=== PATIENT | female | born 1950 | race Caucasian/White ===

== ENCOUNTER 2018-07-24 09:13 | Emergency (ER) | payer OTHER ==
[2018-07-24 09:34] VITALS: BMI 37.8
[2018-07-24] MEDS ORDERED: KETOROLAC TROMETHAMINE 30 MG/1 ML VIAL IVPUSH ONE (09:39)
--- NOTE | 2018-07-24 09:40 | PDOC ---
History of Present Illness - General Chief Complaint: Urinary Problem Stated Complaint: R/O KIDNEY STONE Time Seen by Provider: 07/24/18 09:33 - History of Present Illness Initial Comments: 07/24/18 10:11 CHIEF COMPLAINT: Flank pain HISTORY OF PRESENT ILLNESS: This is a 67-year-old female with a history of hypertension, hyperlipidemia, and NIDDM, and distant history of kidney stones not requiring any intervention who presents complaining of sudden onset of left flank pain and vomiting this morning. She states symptoms are reminiscent of prior episodes of kidney stones. She denies fevers/chills, dysuria, hematuria, or any other symptoms. Vital signs on arrival are all within normal limits. REVIEW OF SYSTEMS: GENERAL/CONSTITUTIONAL: No fever or chills. No weakness. No weight change. HEAD, EYES, EARS, NOSE AND THROAT: No change in vision. No ear pain or discharge. No sore throat. CARDIOVASCULAR: No chest pain or palpitations. RESPIRATORY: No cough, wheezing, or shortness of breath. GASTROINTESTINAL: Nausea/vomiting. No diarrhea or constipation. GENITOURINARY: Left flank pain. No dysuria, frequency, or change in urination. MUSCULOSKELETAL: No joint or muscle swelling or pain. No neck or back pain. SKIN: No rash or easy bruising. NEUROLOGIC: No headache, vertigo, loss of consciousness, or loss of sensation. PSYCHIATRIC: No depression or anxiety. ENDOCRINE: No increased thirst. No abnormal weight change. HEMATOLOGIC/LYMPHATIC: No anemia, easy bleeding, or history of blood clots. ALLERGIC/IMMUNOLOGIC: No hives or skin allergy. No latex allergy. PHYSICAL EXAM: GENERAL: The patient is awake, alert, and fully oriented, in distress secondary to pain. HEAD: Normal with no signs of trauma. ENT: Pupils equal, round and reactive to light, extraocular movements intact, sclera anicteric, conjunctiva clear. Neck supple. LUNGS: Clear to auscultation bilaterally. Normal excursion. No respiratory distress or use of accessory muscles. CV: RRR, S1/S2, no MRG. Cap refill < 2 sec. ABDOMEN: Soft, non-distended, tender in LLQ, left CVA. EXTREMITIES: Normal range of motion, no edema. NEUROLOGICAL: Normal speech, normal gait. CN II-XII grossly intact. PSYCH: Normal mood, normal affect. SKIN: Warm, dry, normal turgor, no rashes or lesions noted. 07/24/18 10:12 Past History - Past Medical History Allergies/Adverse Reactions: Allergies Allergy/AdvReac Type Severity Reaction Status Date / Time No Known Allergies Allergy Verified 07/24/18 09:32 Home Medications: Ambulatory Orders Cephalexin [Keflex] 500 mg PO Q6H #40 capsule 07/24/18 Oxycodone HCl/Acetaminophen [Percocet 5-325 mg Tablet] 1 - 2 tab PO Q6H PRN #30 tab MDD 8 tabs 07/24/18 Tamsulosin HCl [Flomax] 0.4 mg PO DAILY #7 cap.er.24h 07/24/18 CVA: No COPD: No Diabetes: Yes (NIDM) HTN: Yes Hypercholesterolemia: Yes - Immunization History Immunization Up to Date: Yes - Suicide/Smoking/Psychosocial Hx Smoking History: Never smoked Information on smoking cessation initiated: No Hx Alcohol Use: No Drug/Substance Use Hx: No *Physical Exam - Vital Signs Last Vital Signs Temp Pulse Resp BP Pulse Ox 97.3 F L 83 17 163/81 95 07/24/18 09:29 07/24/18 09:29 07/24/18 09:29 07/24/18 09:29 07/24/18 09:29 ED Treatment Course - LABORATORY CBC & Chemistry Diagram: 07/24/18 09:30 07/24/18 09:30 Medical Decision Making - Medical Decision Making 07/24/18 10:13 A/P: 67-year-old female with distant history of kidney stones presenting with sudden onset of left flank pain and vomiting. Differential includes but is not limited to renal colic, pyelonephritis, less likely diverticulitis or other intra-abdominal process. 1. Labs including CBC, CMP, UA/culture 2. Toradol 30 mg IV push for pain and Zofran 4 mg IV push for nausea 3. CT spiral renal stone protocol 4. Reassess Labs notable for WBC 21, UA with 3+ blood, 11 WBCs, 641 bacteria. Pain improved with Toradol, but still present. CT reviewed: 3 mm stone just proximal to left UVJ with hydroureter. Discussed with patient and recommended admission given pain, likely infected stone, diabetes, and significant leukocytosis. 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 She states that she will be able to return to the Hospital if worsening. We agreed that she would return this weekend for repeat labs and reevaluation. Will refer to urology. Will give dose of ceftriaxone here and Keflex and Percocet for home. *DC/Admit/Observation/Transfer Diagnosis at time of Disposition: Kidney stone on left side, Urinary tract infection - Discharge Dispostion Disposition: HOME Condition at time of disposition: Stable Decision to Admit order: No - Referrals Referrals: Isaías Beltran MD., MD [Staff Physician] - Call tomorrow - Patient Instructions Printed Discharge Instructions: DI for Kidney Stones Additional Instructions: Take Keflex as prescribed for urinary tract infection, Flomax as prescribed to help the stone pass, and Percocet as needed for pain -Call today for a urology follow-up appointment as soon as possible -As discussed, please return here over the weekend for repeat evaluation and lab work as her white blood cell count was very high today and U have a condition for which we usually recommend admission -Return at any time if you develop worsening pain, vomiting with inability to keep down fluids, fever, or any other concerning symptoms - Post Discharge Activity
[2018-07-24] MEDS ORDERED: KETOROLAC TROMETHAMINE 30 MG/1 ML VIAL ONE (09:44)
[2018-07-24] MEDS ORDERED: ONDANSETRON 4 MG/2 ML VIAL IVPUSH ONE (09:52)
[2018-07-24 09:55] LABS: BASO % 0.8 % (0-2.0); EOS % 0.7 % (0-4.5); HEMATOCRIT 40.2 % (32.4-45.2); HEMOGLOBIN 13.3 GM/dL (10.7-15.3); LYMPH % 16.8 % (8-40); MCH 29.7 pg (25.7-33.7); MCHC 33.2 g/dl (32.0-36.0); MEAN CELL VOLUME 89.4 fl (80-96); MEAN PLT VOLUME 9.5 fl (7.5-11.1); MONO % 6.2 % (3.8-10.2); NEUT % 75.5 % (42.8-82.8); PLATELET COUNT 364 K/MM3 (134-434); RDW 14.3 % (11.6-15.6)
[2018-07-24] MEDS ORDERED: ONDANSETRON 4 MG/2 ML VIAL ONE (09:59)
[2018-07-24 10:21] LABS: EPI CELLS 6.6 /HPF (0-5/HPF); HYALINE CASTS 4 /lpf (0-8); URINE APPEARANCE CLOUDY; URINE BACTERIA 641.4 /hpf (NEGATIVE); URINE BILIRUBIN NEGATIVE (NEGATIVE); URINE COLOR YELLOW; URINE GLUCOSE (UA) TRACE (NEGATIVE); URINE KETONE TRACE (NEGATIVE); URINE LEUK ESTERASE TRACE (NEGATIVE); URINE NITRITE NEGATIVE (NEGATIVE); URINE PROTEIN 1+ (NEGATIVE); URINE UROBILINOGEN 0.2 mg/dL (0.2-1.0); URINE WBC 11 /hpf (0-5)
[2018-07-24 10:43] LABS: BILIRUBIN,TOTAL 0.5 mg/dL (0.2-1); BLOOD UREA NITROGEN 15.2 mg/dL (7-18); CALCIUM 9.1 mg/dL (8.5-10.1); CREATININE 0.8 mg/dL (0.55-1.3); POTASSIUM 4.1 mmol/L (3.5-5.1); TOT PROT 7.8 g/dl (6.4-8.2)
[2018-07-24 10:51] LABS: URINE CRYSTALS NONE SEEN /hpf; URINE RBC 927.8 /hpf (0-4)
[2018-07-24 11:38] LABS: ANISOCYTOSIS 0; MACROCYTOSIS 0; PLATELET ESTIMATE NORMAL
[2018-07-24] MEDS ORDERED: CEFTRIAXONE 1 GM in DEXTROSE 5%-WATER - 100 ML IVPB ONE (12:15)
[2018-07-24] MEDS ORDERED: TAMSULOSIN HCL 0.4 MG CAP PO ONE (12:17)
[2018-07-24] MEDS ORDERED: TAMSULOSIN HCL 0.4 MG CAP ONE (12:22)
[2018-07-24] MEDS ORDERED: CEFTRIAXONE 1 GM/50 ML BAG ONE (12:22)
[2018-07-24 12:56] VITALS: BP 145/78; PULSE 86; TEMP 97.2
== END 2018-07-24 12:55 | disposition home or self-care (01) ==
LOC: JER 09:13 → EDBD 09:13 → JER 12:55
PROC: 3E03329 Introduction of Other Anti-infective into Peripheral Vein, Percutaneous Approach (ICD-10-PCS; principal; 2018-07-24)
PROC: 3E0333Z Introduction of Anti-inflammatory into Peripheral Vein, Percutaneous Approach (ICD-10-PCS; 2018-07-24)
PROC: 3E033GC Introduction of Other Therapeutic Substance into Peripheral Vein, Percutaneous Approach (ICD-10-PCS; 2018-07-24)
DX: N20.0 Calculus of kidney (principal); N39.0 Urinary tract infection, site not specified
CPT/HCPCS: 36415; 74176-TC; 80053; 81003; 85025; 87086; 87186; 96365; 96375; 99282-25

== ENCOUNTER 2018-07-26 10:49 | Emergency (ER) | payer OTHER ==
[2018-07-26 10:54] VITALS: BP 161/76; PULSE 79; TEMP 97.7; BMI 37.8
--- NOTE | 2018-07-26 11:47 | PDOC ---
History of Present Illness - General Chief Complaint: Revisit, Lab Variance Stated Complaint: REVISIT Time Seen by Provider: 07/26/18 11:38 History Source: Patient - History of Present Illness Timing/Duration: reports: changing over time Quality: reports: mild Abdominal Pain Onset Location: reports: flank Past History - Past Medical History Allergies/Adverse Reactions: Allergies Allergy/AdvReac Type Severity Reaction Status Date / Time No Known Allergies Allergy Verified 07/26/18 10:54 Home Medications: Ambulatory Orders Cephalexin [Keflex] 500 mg PO Q6H #40 capsule 07/24/18 Oxycodone HCl/Acetaminophen [Percocet 5-325 mg Tablet] 1 - 2 tab PO Q6H PRN #30 tab MDD 8 tabs 07/24/18 Tamsulosin HCl [Flomax] 0.4 mg PO DAILY #7 cap.er.24h 07/24/18 CVA: No COPD: No Diabetes: Yes (NIDM) HTN: Yes Hypercholesterolemia: Yes Kidney Stones: Yes - Immunization History Immunization Up to Date: Yes - Suicide/Smoking/Psychosocial Hx Smoking History: Never smoked Hx Alcohol Use: No Drug/Substance Use Hx: No Review of Systems - Review of Systems Constitutional: No: Chills, Fever ABD/GI: No: Nausea, Vomiting, Abdominal cramping : Yes: Flank Pain. No: Burning, Dysuria, Hematuria *Physical Exam - Vital Signs Last Vital Signs Temp Pulse Resp BP Pulse Ox 97.7 F 79 18 161/76 96 07/26/18 10:51 07/26/18 10:51 07/26/18 10:51 07/26/18 10:51 07/26/18 10:51 - Physical Exam General Appearance: Yes: Appropriately Dressed. No: Apparent Distress HEENT: positive: Normal Voice Neck: positive: Supple Respiratory/Chest: negative: Respiratory Distress Gastrointestinal/Abdominal: positive: Soft. negative: Tender Musculoskeletal: negative: CVA Tenderness Integumentary: positive: Dry, Warm Neurologic: positive: Fully Oriented, Alert, Normal Mood/Affect ED Treatment Course - LABORATORY CBC & Chemistry Diagram: 07/26/18 12:20 07/26/18 12:20 Medical Decision Making - Medical Decision Making 07/26/18 11:42 67 -year-old female, history of HTN. HLD, NIDDM, here for reassessment for possible infected kidney stone. Patient was seen here 2 days ago for severe L flank pain with nausea. Found to have WBC of [address] read as 3mm distal L ureteral stone, just above UVJ, w/ L hydro/stranding. Pt was tx w/ IV ceftriaxone and declined admission then 2/2 having to take care of grandchildren. Was sent home after pt promised she would return this weekend. States pain sig better, currently taking only tylenol for pain control. No n/v/f /c, dysuria/hematuria. Currently on Keflex and flomax. Of note, pre-thibodeaux ucx w/ > 100K CFU of non-lactose fermenting GNB, final report/sensitivity pending See exam Infected renal stone Declined admission 2 days ago Last visit-CT w/ 3mm L distal ureteral stone w/ hydro/stranding, WBC 21 w/ pre- thibodeaux ucx w/ > 100K non fermenting GNB, sen pending Sxs improved since last visit, stable and in NAD w/ benign abd and no CVAT -Will rpt labs and discuss dispo w/ 07/26/18 13:40 WBC 10 today vs 21 on visit 2 days ago. Of note, final report of urine culture shows herring-sensitive ecoli. Case discussed with Dr. Beltran of who states since patient clinically doing better, no need to admit at this time. Joana would like patient to receive another dose of Rocephin while here and that patient should call his office tomorrow to make an appointment to be seen this week 07/26/18 14:26 Pt s/p IV cefriaxone. Stable for discharge to f/u with this week *DC/Admit/Observation/Transfer Diagnosis at time of Disposition: Renal stone UTI (urinary tract infection) Qualifiers: Urinary tract infection type: acute cystitis Hematuria presence: without hematuria Qualified Code(s): N30.00 - Acute cystitis without hematuria - Discharge Dispostion Disposition: HOME Condition at time of disposition: Improved - Referrals Referrals: Isaías Beltran MD., MD [Staff Physician] - - Patient Instructions Printed Discharge Instructions: Kidney Stones -- Adult, DI for Urinary Tract Infection (UTI) Additional Instructions: Please resume Keflex, Tylenol and plenty of fluids. We discussed case with urologist, Dr. Beltran, who wants to see you in office this week. Please call number given to make an appointment and tell staff that you were seen in the ED and that Dr. Beltran was contacted and wants to see you this week - Post Discharge Activity
[2018-07-26 12:34] LABS: BASO % 2.5 % (0-2.0); EOS % 1.6 % (0-4.5); HEMATOCRIT 38.5 % (32.4-45.2); HEMOGLOBIN 12.5 GM/dL (10.7-15.3); LYMPH % 36.2 % (8-40); MCH 29.5 pg (25.7-33.7); MCHC 32.6 g/dl (32.0-36.0); MEAN CELL VOLUME 90.6 fl (80-96); MEAN PLT VOLUME 9.4 fl (7.5-11.1); MONO % 7.2 % (3.8-10.2); NEUT % 52.5 % (42.8-82.8); PLATELET COUNT 330 K/MM3 (134-434); RBC 4.25 M/mm3 (3.60-5.2); RDW 14.4 % (11.6-15.6); WHITE BLOOD COUNT 10.3 K/mm3 (4.0-10.0)
[2018-07-26 12:54] LABS: ALBUMIN 3.5 g/dl (3.4-5.0); BILIRUBIN,TOTAL 0.4 mg/dL (0.2-1); BLOOD UREA NITROGEN 12.7 mg/dL (7-18); CALCIUM 9.2 mg/dL (8.5-10.1); CREATININE 0.7 mg/dL (0.55-1.3); POTASSIUM 3.8 mmol/L (3.5-5.1); TOT PROT 7.2 g/dl (6.4-8.2)
[2018-07-26 13:32] LABS: EPI CELLS 3.8 /HPF (0-5/HPF); HYALINE CASTS 5 /lpf (0-8); PH,URINE 5.5 (5.0-8.0); URINE APPEARANCE CLOUDY; URINE BACTERIA 2.9 /hpf (NEGATIVE); URINE BILIRUBIN NEGATIVE (NEGATIVE); URINE COLOR YELLOW; URINE GLUCOSE (UA) TRACE (NEGATIVE); URINE KETONE TRACE (NEGATIVE); URINE LEUK ESTERASE NEGATIVE (NEGATIVE); URINE NITRITE NEGATIVE (NEGATIVE); URINE PROTEIN 1+ (NEGATIVE); URINE RBC 2 /hpf (0-4); URINE UROBILINOGEN 0.2 mg/dL (0.2-1.0); URINE WBC 2 /hpf (0-5)
[2018-07-26] MEDS ORDERED: CEFTRIAXONE 1 GM in DEXTROSE 5%-WATER - 50 ML IVPB ONE (13:37)
[2018-07-26] MEDS ORDERED: CEFTRIAXONE 1 GM/50 ML BAG ONE (13:45)
[2018-07-26 14:19] LABS: URINE CRYSTALS CA OXALATE /hpf
== END 2018-07-26 14:43 | disposition home or self-care (01) ==
LOC: JER 10:49
DX: N20.0 Calculus of kidney (principal); Z87.442 Personal history of urinary calculi; N39.0 Urinary tract infection, site not specified
CPT/HCPCS: 36415; 80053; 81003; 85025; 87086; 96365; 99282-25

== ENCOUNTER 2018-11-13 05:57 | Inpatient (IN) | payer OTHER ==
[2018-11-02 12:06] VITALS: BMI 37.6
[2018-11-13] MEDS ORDERED: TRANEXAMIC ACID 1000 MG/10 ML VIAL IVPUSH ONE (07:07)
[2018-11-13] MEDS ORDERED: CEFAZOLIN 2 GM in DEXTROSE 5%-WATER - 50 ML IVPB ONE (07:07)
[2018-11-13] MEDS ORDERED: CELECOXIB 200 MG CAPSULE PO ONE ×2 (07:07→07:15)
[2018-11-13] MEDS ORDERED: SODIUM CHLORIDE 0.9% P/F 10 ML VIAL IJ ONE (07:15)
[2018-11-13] MEDS ORDERED: MIDAZOLAM HCL 2 MG/2 ML SINGLE DOSE VIAL ONE ×3 (07:15→07:18)
[2018-11-13] MEDS ORDERED: BUPIVACAINE LIPOSOME/PF (EXPAREL) 266 MG/20 ML VIAL ONE (07:15)
[2018-11-13] MEDS ORDERED: ceFAZolin SODIUM 1 GM VIAL ONE ×2 (07:17→07:34)
[2018-11-13] MEDS ORDERED: EPHEDRINE SULFATE/0.9% NACL/PF 50 MG/10 ML SYRINGE NR ONE ×2 (07:17→09:07)
[2018-11-13] MEDS ORDERED: PROPOFOL 20 ML ONE (07:17)
[2018-11-13] MEDS ORDERED: DEXAMETHASONE SOD PHOSPHATE 4 MG/1 ML VIAL ONE (07:17)
[2018-11-13] MEDS ORDERED: ONDANSETRON 4 MG/2 ML VIAL ONE ×2 (07:17→11:09)
[2018-11-13] MEDS ORDERED: ONDANSETRON 4 MG/2 ML VIAL IVPUSH PRN (07:30)
[2018-11-13] MEDS ORDERED: LACTATED RINGERS SOLUTION 1,000 ML IV SCH ×2 (07:30→08:00)
[2018-11-13] MEDS ORDERED: ONDANSETRON 4 MG/2 ML VIAL IVPB PRN (07:33)
[2018-11-13] MEDS ORDERED: MAGNESIUM HYDROX 2400MG/30ML ORAL SUSPENSION 30 ML CUP PO PRN (07:56)
[2018-11-13] MEDS ORDERED: MAG HYDROX/AL HYDROX/SIMETH 30 ML UNIT-DOSE CUP PO PRN (07:56)
--- NOTE | 2018-11-13 08:00 | HP ---
[facility]ellite [facility] - Chief Complaint Chief Complaint: right knee pain - Past Medical History Allergies/Adverse Reactions: Allergies Allergy/AdvReac Type Severity Reaction Status Date / Time No Known Allergies Allergy Verified 11/13/18 07:15 - Current Medications Current Medications: Home Medications Medication Instructions Recorded Acetaminophen [Tylenol Arthritis] 650 mg PO DAILY PRN 11/02/18 Amlodipine Besylate [Norvasc -] 5 mg PO DAILY 11/02/18 Biotin 1,000 mcg PO DAILY 11/02/18 Chrom Rupa/Brindal Salazar [Garcinia 1 each PO DAILY 11/02/18 Cambogia Tablet] Cinnamon Bark [Cinnamon] 500 mg PO HS 11/02/18 Exenatide Microspheres [Bydureon 2 mg SQ WEEKLY 11/02/18 Pen] Ferrous Sulfate [Feosol] 325 mg PO BID 11/02/18 Hydrochlorothiazide 25 mg PO DAILY 11/02/18 Lisinopril 20 mg PO BID 11/02/18 Pyridoxine HCl (B-6) [Vitamin B6] 100 mg PO DAILY 11/02/18 Simvastatin 40 mg PO HS 11/02/18 metFORMIN HCL [Metformin HCl ER] 750 mg PO BID 11/02/18 Enalapril Maleate [Vasotec] 20 mg PO BID 11/13/18 Satellite Physical Exam - Physical Examination Vital Signs: Vital Signs Period Temp Pulse Resp BP Sys/Murillo Pulse Ox Last 24 Hr 98.5 F 87 20 137/74 General Appearance: Well Nourished, Well Developed, Alert & Oriented x3 ENT: Clear Lung: Normal air movement Heart: Regular rate & rhythm Extremities: Other (right knee- +swelling, + ttp ,decr rom ,nvi, xrays show grade 4 tricompartmental djd) Neurological: Intact, Alert, Oriented Satellite Impression/Plan - Impression/Plan Impression: right knee djd Operative Procedure: right bess tkr Date to be Performed: 11/13/18
[2018-11-13] MEDS ORDERED: TRANEXAMIC ACID 1000 MG/10 ML VIAL ONE (09:07)
[2018-11-13] MEDS ORDERED: VANCOMYCIN 1,000 MG VIAL (RESTRICTED TO ID ONLY) ONE (09:18)
[2018-11-13] MEDS ORDERED: PATIENT'S OWN MEDICATION (NON-FORMULARY) (Enalapril Maleate [Vasotec] 20 MG) PO SCH (10:00)
--- NOTE | 2018-11-13 10:12 | OP ---
Operative Note - Note: Operative Date: 11/13/18 (vane) Pre-Operative Diagnosis: right knee djd Operation: right bess tkr Post-Operative Diagnosis: Same as Pre-op Surgeon: Adam Brian Tactical Debriefer: Sandoval Nolasco Anesthesia: Spinal, Local Specimens Removed: bone fragments Estimated Blood Loss (mls): 100 Operative Report Dictated: Yes
[2018-11-13] MEDS: ONDANSETRON 4 MG/2 ML VIAL IVPUSH PRN (11:14)
[2018-11-13] MEDS: oxyCODONE HCL 5 MG TABLET PO PRN ×3 (12:28→21:28)
[2018-11-13] MEDS: INSULIN SLIDING SCALE (NOVOLOG) 1 VIAL SQ SCH ×3 (13:39→22:43)
[2018-11-13] MEDS: MULTIVITAMINS (DAILY MVI) TABLET (FP) PO SCH (13:41)
[2018-11-13] MEDS: SENNOSIDES/DOCUSATE COMBO (SENNA PLUS) TABLET (UD) PO SCH ×2 (13:42→21:28)
[2018-11-13] MEDS: oxyCODONE HCL 10 MG SUSTAINED ACTING TABLET PO SCH ×2 (13:42→21:28)
[2018-11-13] MEDS: PANTOPRAZOLE 40 MG TABLET (FP) PO SCH (13:42)
[2018-11-13] MEDS: LISINOPRIL 20 MG TABLET (FP) PO SCH ×2 (13:42→21:28)
[2018-11-13] MEDS: amLODIPine BESYLATE 5 MG TABLET (FP) PO SCH (13:43)
[2018-11-13] MEDS: HYDROCHLOROTHIAZIDE 25 MG TABLET (FP) PO SCH (13:43)
[2018-11-13] MEDS: FERROUS SO4 325 MG TABLET (FP) PO SCH ×2 (13:43→21:28)
[2018-11-13] MEDS: ACETAMINOPHEN 325 MG TABLET (FP) PO SCH ×2 (14:16→21:23)
[2018-11-13] MEDS: ceFAZolin SODIUM 1 GM VIAL IVPB SCH (15:58)
[2018-11-13] MEDS ORDERED: CEFAZOLIN 3 GM in DEXTROSE 5%-WATER - 100 ML IVPB SCH (16:00)
--- NOTE | 2018-11-13 18:10 | CONSULT ---
Consult - Past Medical History Cardio/Vascular: Yes: HTN, Hyperlipdemia Gastrointestinal: Yes: GERD Renal/: No: Renal Inusuff Musculoskeletal: Yes: Osteoarthritis Endocrine: Yes: Diabetes Mellitus - Alcohol/Substance Use Hx Alcohol Use: No - Smoking History Smoking history: Never smoked Have you smoked in the past 12 months: No Home Medications - Allergies Allergies/Adverse Reactions: Allergies Allergy/AdvReac Type Severity Reaction Status Date / Time No Known Allergies Allergy Verified 11/13/18 07:15 - Home Medications Home Medications: Ambulatory Orders Acetaminophen [Tylenol Arthritis] 650 mg PO DAILY PRN 11/02/18 Amlodipine Besylate [Norvasc -] 5 mg PO DAILY 11/02/18 Biotin 1,000 mcg PO DAILY 11/02/18 Chrom Rupa/Brindal Salazar [Garcinia Cambogia Tablet] 1 each PO DAILY 11/02/18 Cinnamon Bark [Cinnamon] 500 mg PO HS 11/02/18 Exenatide Microspheres [Bydureon Pen] 2 mg SQ WEEKLY 11/02/18 Ferrous Sulfate [Feosol] 325 mg PO BID 11/02/18 Hydrochlorothiazide 25 mg PO DAILY 11/02/18 Lisinopril 20 mg PO BID 11/02/18 Pyridoxine HCl (B-6) [Vitamin B6 -] 100 mg PO DAILY 11/02/18 Simvastatin 40 mg PO HS 11/02/18 metFORMIN HCL [Metformin HCl ER] 750 mg PO BID 11/02/18 Aspirin [ASA -] 325 mg PO DAILY@0800 tablet 11/13/18 Enalapril Maleate [Vasotec] 20 mg PO BID 11/13/18 Oxycodone HCl/Acetaminophen [Percocet 5-325 mg Tablet -] 1 - 2 tab PO Q6H #50 tab MDD 8 11/13/18 Review of Systems - Review of Systems Cardiovascular: reports: No Symptoms Respiratory: reports: No Symptoms Gastrointestinal: reports: Rectal Bleeding Musculoskeletal: reports: Joint Pain Physical Exam Vital Signs: Vital Signs Temperature 98.2 F 11/13/18 15:00 Pulse Rate 94 H 11/13/18 15:00 Respiratory Rate 20 11/13/18 15:00 Blood Pressure 139/66 11/13/18 15:00 O2 Sat by Pulse Oximetry (%) 97 11/13/18 11:40 Cardiovascular: Yes: Regular Rate and Rhythm Respiratory: Yes: Regular, CTA Bilaterally Gastrointestinal: Yes: Normal Bowel Sounds Musculoskeletal: Yes: Joint Stiffness, Joint Swelling Edema: No Problem List - Problems (1) HTN (hypertension) Assessment/Plan: SAME MEDS MONITOR BP Code(s): I10 - ESSENTIAL (PRIMARY) HYPERTENSION (2) HLD (hyperlipidemia) Assessment/Plan: ON STATIN Code(s): E78.5 - HYPERLIPIDEMIA, UNSPECIFIED (3) Diabetes Assessment/Plan: METFORMIN BGM W SS Code(s): E11.9 - TYPE 2 DIABETES MELLITUS WITHOUT COMPLICATIONS (4) Osteoarthritis Assessment/Plan: - Note: Operative Date: 11/13/18 (vane) Pre-Operative Diagnosis: right knee djd Operation: right bess tkr Post-Operative Diagnosis: Same as Pre-op Surgeon: Aadm Brian Machine Sweeper Brush Maker: Sandoval Nolasco Code(s): M19.90 - UNSPECIFIED OSTEOARTHRITIS, UNSPECIFIED SITE
[2018-11-13] MEDS: ATORVASTATIN CA 20 MG TABLET (FP) PO SCH (21:28)
[2018-11-13] MEDS ORDERED: PT OWN MED DRAWER 7, Y5N ONE (21:30)
[2018-11-14] MEDS: ceFAZolin SODIUM 1 GM VIAL IVPB SCH (00:37)
[2018-11-14] MEDS: ACETAMINOPHEN 325 MG TABLET (FP) PO SCH ×4 (03:37→20:12)
[2018-11-14] MEDS: oxyCODONE HCL 5 MG TABLET PO PRN ×3 (05:54→20:11)
--- NOTE | 2018-11-14 06:26 | SPEC ---
DATE OF OPERATION: 11/13/2018 PREOPERATIVE DIAGNOSIS: Degenerative joint disease, right knee. POSTOPERATIVE DIAGNOSIS: Degenerative joint disease, right knee. PROCEDURE: Right Press-Fit total knee replacement with robotic-assisted navigation (MAKOplasty). SURGICAL ATTENDING: Adam Brian MD CLERICAL ADMINISTRATOR: GALO Amaya ANESTHESIA: Regional and spinal. CLOSURE: Triathlon Press-Fit knee system with a 3 femur, 4 tibia, 11 polyethylene, 29 patella; No. 1 Vicryl fascia, 0 and 2-0 subcutaneous, and 3-0 Monocryl subcuticular with skin glue for skin, 4-0 undyed Vicryl for pin sites. ESTIMATED BLOOD LOSS: Less than 100 mL. COMPLICATIONS: None. CONDITION: To recovery in stable condition. DESCRIPTION OF OPERATIVE PROCEDURE: Patient was taken to the operating room on November 13, 2018. Regional and spinal anesthesia was administered by the anesthesiologist. IV Kefzol was administered prophylactically prior to the case as well as TXA. The right lower extremity was prepped and draped in the usual sterile fashion. The midline 10- to 12-cm longitudinal incision was made. Hemostasis was achieved with Bovie cautery. Sharp dissection was carried down to the extensor mechanism which was perform the procedure. Medial parapatellar arthrotomy was then performed, leaving a cuff of tissue for later closure. The patella was inverted and the knee was flexed up. The fat pad was excised. Subperiosteal dissection was done on the anteromedial proximal tibia until the knee was able to be brought forward. This was facilitated by taking the ACL, PCL and medial and lateral menisci. Checkpoints were placed in both the femur and in the tibia. Two parallel threaded pins were drilled superior to the knee joint through the already made incision from anterior to posterior just going through the anterior cortex but just engaging but not going through the posterior cortex. Two threaded pins were drilled through 2 small stab incisions in parallel fashion 1 handbreadth below the tibial tubercle through the anterior cortex of the tibia and engaging but not going through the posterior cortex. Both sets of pins were attached to navigation arrays for the YUE system. The knee was then registered with the navigation system with center of rotation of the hip, medial and lateral malleoli and multiple sites both on the tibia and on the femur. Confirmation of excellent registration was confirmed by "popping the bubbles." At this time, the knee was thoroughly inspected to remove all osteophytes around the knee. The knee was then tensioned in varus/valgus at both full extension and at 90 degrees of flexion to ascertain our gaps. The virtual position of the components was optimized to ensure equal gaps throughout the range of motion. Once this was performed, the robot was brought into the field, was registered. The bone was cut as per the specifications on both the tibia and on the femur. The box cuts were then made as well. Excellent trial stability was obtained on the femur. The tibial baseplate was allowed to "find itself" and then was clipped into place. Confirmation of excellent external rotation of that component was confirmed by the navigation device as well.The patella was calibered for thickness and cut at the appropriate level. The appropriate lollipop was used to drill 3 holes in the patella and a trial asymmetric patellar button was applied. The knee was taken through a range of motion and found to have excellent stability from full extension to full flexion with excellent tracking of the patella. The trial components were then removed. The lug holes were drilled in the femur. The cementless keel was punched in the tibia. The real Press-Fit components were malleted into place, first with the tibia and then with the femur, and then the patella was crimped into place as well. The real polyethylene liner was then clipped into place. Range of motion, stability and tracking were as described earlier. The knee was thoroughly irrigated with copious amounts of irrigation. Vancomycin powder was placed inside the joint. The medial parapatellar arthrotomy was then closed using No. 1 Vicryl interrupted suture. Post closure of the arthrotomy, the knee was taken through a range of motion and found to have no undue tension on the repair. The subcutaneous was then pulse antibiotic irrigated, closed with 0 and 2-0 Vicryl and 3-0 Monocryl subcuticular with skin glue for the skin. Prior to closure, the checkpoints were removed as were the threaded pins. The tibial pin sites were closed with 4-0 undyed Vicryl. A sterile pressure Aquacel dressing was applied. No tourniquet was used during the case. The total blood loss was approximately 100 mL. No complication. Patient was transferred to recovery in stable condition. Joana [id number]
[2018-11-14] MEDS: INSULIN SLIDING SCALE (NOVOLOG) 1 VIAL SQ SCH ×4 (06:42→21:31)
[2018-11-14] MEDS: ASPIRIN 325 MG TABLET PO SCH (08:12)
[2018-11-14 08:50] LABS: HEMATOCRIT 36.3 % (32.4-45.2); HEMOGLOBIN 11.9 GM/dl (10.7-15.3); MCH 30.2 pg (25.7-33.7); MEAN CELL VOLUME 91.7 fl (80-96); PLATELET COUNT 308 K/MM3 (134-434); RBC 3.96 M/mm3 (3.60-5.2); RDW 13.6 % (11.6-15.6); WHITE BLOOD COUNT 14.1 K/mm3 (4.0-10.8)
[2018-11-14] MEDS ORDERED: PT OWN MED DRAWER 7, Y5N ONE ×2 (08:53→21:09)
[2018-11-14] MEDS: SENNOSIDES/DOCUSATE COMBO (SENNA PLUS) TABLET (UD) PO SCH ×2 (09:02→21:29)
[2018-11-14] MEDS: FERROUS SO4 325 MG TABLET (FP) PO SCH ×2 (09:03→21:29)
[2018-11-14] MEDS: PANTOPRAZOLE 40 MG TABLET (FP) PO SCH (09:03)
[2018-11-14] MEDS: MULTIVITAMINS (DAILY MVI) TABLET (FP) PO SCH (09:03)
[2018-11-14] MEDS: oxyCODONE HCL 10 MG SUSTAINED ACTING TABLET PO SCH ×2 (09:04→21:29)
[2018-11-14 09:16] LABS: CALCIUM 8.7 mg/dl (8.5-10); CREATININE 0.8 mg/dl (0.55-1.3); POTASSIUM 4.4 mmol/L (3.5-5.1)
[2018-11-14] MEDS: ONDANSETRON 4 MG/2 ML VIAL IVPUSH PRN ×2 (09:44→20:11)
[2018-11-14] MEDS: LISINOPRIL 20 MG TABLET (FP) PO SCH ×2 (11:35→21:29)
[2018-11-14] MEDS: HYDROCHLOROTHIAZIDE 25 MG TABLET (FP) PO SCH (11:35)
[2018-11-14] MEDS: amLODIPine BESYLATE 5 MG TABLET (FP) PO SCH (11:35)
--- NOTE | 2018-11-14 20:01 | PN ---
Progress Note (short form) - Note Progress Note: AVSS COMFORTABLE CALF SOFT AND NT NVI ROM 0-70 IMP: DOING WELL PLAN: OOB, PT, DC TO HOME TOMORROW
[2018-11-14] MEDS: ATORVASTATIN CA 20 MG TABLET (FP) PO SCH (21:28)
[2018-11-15] MEDS: ACETAMINOPHEN 325 MG TABLET (FP) PO SCH ×2 (02:52→08:24)
[2018-11-15] MEDS: oxyCODONE HCL 5 MG TABLET PO PRN (06:00)
[2018-11-15] MEDS: ONDANSETRON 4 MG/2 ML VIAL IVPUSH PRN (06:00)
[2018-11-15] MEDS: INSULIN SLIDING SCALE (NOVOLOG) 1 VIAL SQ SCH (06:14)
[2018-11-15 06:24] VITALS: BP 119/54; PULSE 104; TEMP 97.8
[2018-11-15] MEDS: ASPIRIN 325 MG TABLET PO SCH (08:24)
[2018-11-15 09:06] LABS: HEMATOCRIT 36.1 % (32.4-45.2); HEMOGLOBIN 12.3 GM/dl (10.7-15.3); MCH 30.9 pg (25.7-33.7); MEAN PLT VOLUME 10.8 fl (7.5-11.1); PLATELET COUNT 338 K/MM3 (134-434); RBC 3.97 M/mm3 (3.60-5.2); WHITE BLOOD COUNT 18.2 K/mm3 (4.0-10.8)
[2018-11-15] MEDS: FERROUS SO4 325 MG TABLET (FP) PO SCH (09:49)
[2018-11-15] MEDS: HYDROCHLOROTHIAZIDE 25 MG TABLET (FP) PO SCH (09:49)
[2018-11-15] MEDS: oxyCODONE HCL 10 MG SUSTAINED ACTING TABLET PO SCH (09:50)
[2018-11-15] MEDS: amLODIPine BESYLATE 5 MG TABLET (FP) PO SCH (09:50)
[2018-11-15] MEDS: SENNOSIDES/DOCUSATE COMBO (SENNA PLUS) TABLET (UD) PO SCH (09:51)
[2018-11-15] MEDS: PANTOPRAZOLE 40 MG TABLET (FP) PO SCH (09:51)
[2018-11-15] MEDS: MULTIVITAMINS (DAILY MVI) TABLET (FP) PO SCH (09:51)
[2018-11-15] MEDS: LISINOPRIL 20 MG TABLET (FP) PO SCH (09:51)
--- NOTE | 2018-11-19 14:04 | PATH ---
Surgical Pathology Report Patient Name: RODRIGUE VINCENT Med. Rec. #: [id number] /Age/Gender: 1950 (Age: 67) / F Account: [id number] Location: [facility] MED-SURG Taken: 11/12/2018 Received: 11/12/2018 Reported: 11/19/2018 Physicians: Adam Brian M.D. Specimen(s) Received RIGHT KNEE BONE AND TISSUE Clinical History Right knee, osteoarthritis Final Diagnosis KNEE, RIGHT, BONE AND TISSUE, TOTAL KNEE REPLACEMENT: DEGENERATIVE JOINT DISEASE. Electronically Signed Caryn Nguyen M.D. Gross Description Received in formalin, labeled "right knee, bone and tissue" is a 9.5 x 7.7 x 3.3 cm aggregate of multiple portions of bone, fibrocartilaginous and fibroadipose tissue. The tibial plateau measures 7.4 x 4.0 x 0.8 cm. The articular surfaces show areas of eburnation and appear granular. The underlying trabecular bone is yellow and hard. Visualization Developer tissue is submitted in one cassette following decalcification. AE/11/17/2018 ebram/11/17/2018
== END 2018-11-15 11:35 | disposition home health service (06) | DRG 470 ==
LOC: FM/S 05:57
PROVIDERS: ADMIT Orthopaedic Surgery; ATTEND Orthopaedic Surgery
PROC: 8E0Y0CZ Robotic Assisted Procedure of Lower Extremity, Open Approach (ICD-10-PCS; 2018-11-13)
PROC: 0SRC0JA Replacement of Right Knee Joint with Synthetic Substitute, Uncemented, Open Approach (ICD-10-PCS; principal; 2018-11-13 08:54)
DX: M17.11 Unilateral primary osteoarthritis, right knee (principal); I10 Essential (primary) hypertension; E78.5 Hyperlipidemia, unspecified; K21.9 Gastro-esophageal reflux disease without esophagitis; E11.9 Type 2 diabetes mellitus without complications
CPT/HCPCS: 36415; 73560-TC-RT-FY; 80048; 82962; 85027; 94760; 97116-GP; 97163-GP

== ENCOUNTER 2022-12-24 06:08 | Day surgery (SDC) | payer OTHER ==
[2022-12-18 17:29] VITALS: BMI 34.0
[2022-12-24] MEDS ORDERED: CEFAZOLIN 2 GM in DEXTROSE 5%-WATER - 50 ML IVPB ONE (06:58)
[2022-12-24] MEDS ORDERED: TRANEXAMIC ACID 1000 MG/10 ML VIAL IVPUSH ONE (06:58)
[2022-12-24] MEDS ORDERED: ceFAZolin SODIUM 1 GM VIAL ONE ×2 (07:04→07:20)
[2022-12-24] MEDS ORDERED: PROPOFOL 20 ML ONE ×2 (07:04→09:12)
[2022-12-24] MEDS ORDERED: DEXAMETHASONE SOD PHOSPHATE 4 MG/1 ML VIAL ONE (07:04)
[2022-12-24] MEDS ORDERED: ONDANSETRON 4 MG/2 ML VIAL ONE (07:04)
[2022-12-24] MEDS ORDERED: KETOROLAC TROMETHAMINE 30 MG/1 ML VIAL ONE (07:04)
[2022-12-24] MEDS ORDERED: MIDAZOLAM HCL 2 MG/2 ML SINGLE DOSE VIAL ONE (07:05)
[2022-12-24] MEDS ORDERED: BUPIVACAINE HCL/PF 0.5% (5 MG/ML) 30 ML VIAL IJ ONE (07:10)
[2022-12-24] MEDS ORDERED: BUPIVACAINE LIPOSOME/PF (EXPAREL) 266 MG/20 ML VIAL ONE (07:10)
[2022-12-24] MEDS ORDERED: ACETAMINOPHEN INJECTION 100 ML IVPB ONE (07:10)
[2022-12-24] MEDS ORDERED: oxyCODONE HCL 5 MG TABLET PO PRN (07:17)
[2022-12-24] MEDS ORDERED: ONDANSETRON 4 MG/2 ML VIAL IVPUSH PRN (07:17)
[2022-12-24] MEDS ORDERED: THROMBIN (BOVINE) 5,000 UNIT VIAL TP ONE (07:20)
[2022-12-24] MEDS ORDERED: TRANEXAMIC ACID 1000 MG/10 ML VIAL ONE (08:15)
[2022-12-24] MEDS ORDERED: VANCOMYCIN 1,000 MG VIAL (RESTRICTED TO ID ONLY) ONE (09:17)
[2022-12-24] MEDS ORDERED: diphenhydrAMINE HCL 25 MG CAPSULE (FP) PO PRN (10:36)
[2022-12-24] MEDS: SENNOSIDES/DOCUSATE COMBO (SENNA PLUS) TABLET (UD) PO SCH (11:34)
[2022-12-24] MEDS: PANTOPRAZOLE 40 MG TABLET PO SCH (11:34)
[2022-12-24] MEDS: MULTIVITAMINS (DAILY MVI) TABLET (FP) PO SCH (11:34)
[2022-12-24] MEDS: oxyCODONE HCL 5 MG TABLET PO PRN ×3 (12:35→20:32)
[2022-12-24] MEDS: CEFAZOLIN SODIUM 2 GM in SODIUM CHLORIDE 100 ML IVPB SCH ×2 (15:47→23:52)
[2022-12-24] MEDS: ENALAPRIL MALEATE 10 MG TABLET PO SCH (21:04)
[2022-12-24] MEDS ORDERED: ATORVASTATIN CA 20 MG TABLET (FP) PO SCH (22:00)
[2022-12-25 01:58] VITALS: RESP 18
[2022-12-25] MEDS: oxyCODONE HCL 5 MG TABLET PO PRN ×3 (02:14→09:56)
[2022-12-25] MEDS: SENNOSIDES/DOCUSATE COMBO (SENNA PLUS) TABLET (UD) PO SCH ×2 (03:15→10:01)
[2022-12-25] MEDS: LACTATED RINGERS SOLUTION 1,000 ML IV SCH ×2 (03:15→13:58)
[2022-12-25] MEDS: ACETAMINOPHEN 325 MG TABLET (FP) PO PRN ×2 (06:20→09:54)
[2022-12-25] MEDS: INSULIN SLIDING SCALE (NOVOLOG) 1 VIAL SQ SCH ×2 (06:58→11:41)
[2022-12-25] MEDS ORDERED: ASPIRIN 325 MG TABLET PO SCH (08:00)
[2022-12-25 08:08] LABS: HEMATOCRIT 39.4 % (32.4-45.2); HEMOGLOBIN 12.4 G/dL (10.7-15.3); MCH 30.1 pg (25.7-33.7); MCHC 31.5 g/dl (32.0-36.0); MEAN CELL VOLUME 95.7 fl (80-96); MEAN PLT VOLUME 9.9 fl (7.5-11.1); PLATELET COUNT 294.3 10^3/uL (134-434); RBC 4.12 10^6/uL (3.60-5.2); RDW 14.8 % (11.6-15.6); WHITE BLOOD COUNT 13.5 10^3/uL (4.0-10.8)
[2022-12-25] MEDS: ENALAPRIL MALEATE 10 MG TABLET PO SCH (09:54)
[2022-12-25] MEDS: MULTIVITAMINS (DAILY MVI) TABLET (FP) PO SCH (09:54)
[2022-12-25] MEDS: PANTOPRAZOLE 40 MG TABLET PO SCH (09:56)
[2022-12-25] MEDS ORDERED: amLODIPine BESYLATE 5 MG TABLET (FP) PO SCH (10:00)
[2022-12-25] MEDS ORDERED: KETOROLAC TROMETHAMINE 30 MG/1 ML VIAL IVPUSH ONE (11:29)
[2022-12-25 14:36] VITALS: BP 151/63; PULSE 86; TEMP 98.4
== END 2022-12-25 15:49 | disposition home or self-care (01) ==
LOC: FASUSAT 06:08 → FM/S 10:56 → FASUSAT 12-25 15:49
PROVIDERS: ATTEND Orthopaedic Surgery
PROC: 8E0Y0CZ Robotic Assisted Procedure of Lower Extremity, Open Approach (ICD-10-PCS; 2022-12-24)
PROC: 0SRD0J9 Replacement of Left Knee Joint with Synthetic Substitute, Cemented, Open Approach (ICD-10-PCS; principal; 2022-12-24 08:27)
DX: M17.12 Unilateral primary osteoarthritis, left knee (principal); I10 Essential (primary) hypertension; E11.9 Type 2 diabetes mellitus without complications; E78.5 Hyperlipidemia, unspecified; K21.9 Gastro-esophageal reflux disease without esophagitis; Z79.4 Long term (current) use of insulin
CPT/HCPCS: 20985; 27447; C1776; S2900; 36415; 73560-TC-LT-FY; 82962; 85027; 94760; 97010-GP; 97116-GP; 97161-GP; C1713